=== PATIENT | female | born 1995 | race Caucasian/White ===

== ENCOUNTER 2016-04-01 14:40 | Emergency (ER) | payer BC, OTHER ==
[~2016-04-01] VITALS: Ht 157.5 cm; Wt 58.9 kg
[2016-04-01 14:42] VITALS: Ht 157.5 cm; Wt 58.9 kg
[2016-04-01] MEDS ORDERED: IBUP800T25 PO (15:45)
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
[2016-04-01] MEDS ORDERED: IBUPROFEN 800 MG TAB PO ONE (16:00)
[2016-04-01 17:09] VITALS: BP 122/82; PULSE 77; RESP 18; TEMP 98.1
== END 2016-04-01 16:40 | disposition home or self-care (01) ==
LOC: FTE 14:40
DX: S13.9XXA Sprain of joints and ligaments of unspecified parts of neck, initial encounter (principal); S46.812A Strain of other muscles, fascia and tendons at shoulder and upper arm level, left arm, initial encounter; V49.40XA Driver injured in collision with unspecified motor vehicles in traffic accident, initial encounter
CPT/HCPCS: 99283